=== PATIENT | female | born 2000 | race Caucasian/White ===

== ENCOUNTER 2025-10-02 21:03 | Emergency (ER) | payer OTHER ==
[~2025-10-02] VITALS: Ht 160 cm; Wt 55.0 kg
[2025-10-02 23:14] VITALS: BP 127/76; TEMP 97.3; O2SAT 97
== END 2025-10-02 23:15 | disposition home or self-care (01) ==
LOC: M ED 21:03
DX: S00.03XA Contusion of scalp, initial encounter (principal); S60.042A Contusion of left ring finger without damage to nail, initial encounter; Y92.9 Unspecified place or not applicable; Y93.9 Activity, unspecified; Y99.9 Unspecified external cause status; V49.50XA Passenger injured in collision with unspecified motor vehicles in traffic accident, initial encounter; F17.290 Nicotine dependence, other tobacco product, uncomplicated